=== PATIENT | female | born 1995 | race Caucasian/White ===

== ENCOUNTER 2017-08-25 12:19 | Emergency (ER) | payer OTHER ==
[~2017-08-25] VITALS: Ht 162.6 cm; Wt 55.0 kg
--- NOTE | 2017-08-25 13:29 | RAD ---
Indication: Right-sided rib pain, fall one week ago. Technique: Right rib series with PA chest radiograph contains 4 images. No comparison is available. Findings: The lungs are clear. There is no pneumothorax or pleural effusion. Calcified granuloma on the left is noted. Heart is not enlarged. Mediastinal silhouette is not widened. A displaced rib fracture or osseous lesion is not apparent. Impression: Negative for displaced rib fracture.
[2017-08-25] MEDS ORDERED: TRAM-48 PO (13:35)
--- NOTE | 2017-08-25 13:50 | PHYS DOC ---
Past History Past Medical History: No Pertinent History Past Surgical History: No Surgical History Alcohol Use: None Drug Use: None Adult General Chief Complaint Chief Complaint: RIB PAIN HPI HPI 22-year-old female patient states she had an accidental fall from her bed one week ago and hit right side of her chest wall against a chair with continuing right sided chest pain for the last 1 week that getting force with movement and activity. She states she took [id number] ibuprofen and Tylenol without improvement of her pain. Patient denies shortness of breath, fever and chills, nausea and vomiting, . She is a nonsmoker. Review of Systems Review of Systems Constitutional: Denies fever or chills [] Eyes: Denies change in visual acuity, redness, or eye pain [] HENT: Denies nasal congestion or sore throat [] Respiratory: Denies cough or shortness of breath [] Cardiovascular: No additional information not addressed in HPI [] GI: Denies abdominal pain, nausea, vomiting, bloody stools or diarrhea [] : Denies dysuria or hematuria [] Musculoskeletal: Denies back pain or joint pain [] Integument: Denies rash or skin lesions [] Neurologic: Denies headache, focal weakness or sensory changes [] Endocrine: Denies polyuria or polydipsia [] All other systems were reviewed and found to be within normal limits, except as documented in this note. Allergies Allergies Allergies Coded Allergies Type Severity Reaction Last Updated Verified No Known Drug Allergies 08/25/17 No Physical Exam Physical Exam Constitutional: Well developed, well nourished, mild distress, non-toxic appearance. [] HENT: Normocephalic, atraumatic, bilateral external ears normal, oropharynx moist, no oral exudates, nose normal. [] Eyes: PERRLA, EOMI, conjunctiva normal, no discharge. [] Neck: Normal range of motion, no tenderness, supple, no stridor. [] Cardiovascular:Heart rate regular rhythm, no murmur [] Lungs & Thorax: Bilateral breath sounds clear to auscultation, no chest wall deformity or crepitation or subcutaneous emphysema, mild right lateral lower chest wall tenderness] Abdomen: Bowel sounds normal, soft, no tenderness, no masses, no pulsatile masses. [] Skin: Warm, dry, no erythema, no rash. [] Back: No tenderness, no CVA tenderness. [] Extremities: No tenderness, no cyanosis, no clubbing, ROM intact, no edema. [] Neurologic: Alert and oriented X 3, normal motor function, normal sensory function, no focal deficits noted. [] Psychologic: Affect normal, judgement normal, mood normal. [] Current Patient Data Vital Signs Vital Signs Date Time Temp Pulse Resp B/P (MAP) Pulse Ox O2 Delivery O2 Flow Rate FiO2 08/25/17 12:19 97.8 18 100 Room Air EKG EKG [] Radiology/Procedures Radiology/Procedures [] Course & Med Decision Making Course & Med Decision Making Pertinent Imaging studies reviewed. (See chart for details) Evaluation of patient in ER showed 22-year-old female patient with a fall one week ago and right sided chest wall pain. Patient had unremarkable physical exam and chest/rib x-ray. Plan discharge patient home with diagnosis of rib contusion and prescription of Ultram. [] Dragon Disclaimer Dragon Disclaimer This electronic medical record was generated, in whole or in part, using a voice recognition dictation system. Departure Departure: Impression: Primary Impression: Contusion of rib on right side Disposition: 01 HOME, SELF-CARE (At 1400) Condition: STABLE Referrals: PIA ROCKWELL (PCP) Patient Instructions: Chest Wall Pain Additional Instructions: Follow-up with your primary care physician in 3-5 days Return to emergency room if not getting better Scripts Tramadol Hcl (ULTRAM) 50 Mg Tablet 50 MG PO PRN Q6HRS Y for PAIN, #14 TAB Prov: MARCOS PEREZ MD 08/25/17 MARCOS PEREZ MD Aug 25, 2017 13:50
[2017-08-25] MEDS ORDERED: traMADol 50 MG TABLET PO ONE (14:00)
[2017-08-25 14:16] VITALS: BP 136/59
== END 2017-08-25 14:00 | disposition home or self-care (01) ==
LOC: ER 12:19
DX: S20.211A Contusion of right front wall of thorax, initial encounter (principal); W06.XXXA Fall from bed, initial encounter; Y93.89 Activity, other specified; Y99.8 Other external cause status; Y92.89 Other specified places as the place of occurrence of the external cause
CPT/HCPCS: 71101; 99284